=== PATIENT | male | born 1960 | race Caucasian/White ===

== ENCOUNTER 2022-10-18 16:52 | Emergency (ER) | payer OTHER ==
[~2022-10-18] VITALS: Ht 177.8 cm; Wt 72.1 kg
--- NOTE | 2022-10-18 17:25 | NUR ---
BIB [facility] 40 FROM HIS APARTMENT,C/O WEAKNESS AND DIZZINESS ALL AFTERNOON
--- NOTE | 2022-10-18 17:31 | NUR ---
LAB FOR BLOOB AND EMT FOR EKG AT BED SIDE
[2022-10-18 17:48] LABS: BASOPHILS % (AUTO) 0.5 % (0.0-2.0); EOSINOPHILS % (AUTO) 2.1 % (0.0-6.0); HEMATOCRIT 44 % (39-51); HEMOGLOBIN 14.1 g/dL (13.5-17.5); LYMPHOCYTES % (AUTO) 15.9 % (20.0-44.0); MEAN CORPUSCULAR HGB CONC 32 g/dl (31.0-36.0); MEAN CORPUSCULAR VOLUME 83 fL (80-96); MONOCYTES # (AUTO) 0.5 K/uL (0.1-1.30); MONOCYTES % (AUTO) 6.9 % (2.0-12.0); NEUTROPHILS # (AUTO) 4.9 K/uL (1.8-8.9); NEUTROPHILS % (AUTO) 74.6 % (43.0-81.0); PLATELET COUNT (AUTO) 140 K/uL (150-450); RED BLOOD CELL COUNT(AUTO) 5.26 MIL/uL (4.5-6.0); WHITE BLOOD COUNT (AUTO) 6.5 K/uL (4.3-11.0)
[2022-10-18 17:59] LABS: CALCIUM, SERUM 8.5 mg/dL (8.5-10.1); CARBON DIOXIDE 30 mmol/L (21-32); CHLORIDE 114 mmol/L (98-107); CREATININE 1.1 mg/dL (0.6-1.3); GLUCOSE 116 mg/dL (74-106); POTASSIUM 4.1 mmol/L (3.5-5.1); SODIUM SERUM 141 mmol/L (136-145); UREA NITROGEN, BLOOD 13 mg/dL (7-18)
[2022-10-18 18:06] LABS: ALANINE AMINOTRANSFERASE 44 U/L (12-78); ALBUMIN 3.9 g/dL (3.4-5.0); ALKALINE PHOSPHATASE 53 U/L (46-116); ASPARTATE AMINOTRANSFERASE 29 U/L (15-37); BILIRUBIN,DIRECT 0.1 mg/dL (0.0-0.2); BILIRUBIN,TOTAL 0.3 mg/dL (0.2-1.0); TOTAL PROTEIN, SERUM 7.3 g/dL (6.4-8.2)
[2022-10-18] MEDS ORDERED: MECL-159 PO (19:30)
[2022-10-18] MEDS ORDERED: ONDA4TAB11 PO (19:30)
--- NOTE | 2022-10-18 19:38 | NUR ---
RECEIVED REPORT FROM [facility]. PATIENT CAME FOR DIZZINESS. PT IS [id number]. WITH IV CANNULA G18 ON LEFT AC. WAITING FOR DISCHARGE.
--- NOTE | 2022-10-18 19:56 | NUR ---
IV CANNULA REMOVED
--- NOTE | 2022-10-18 19:56 | NUR ---
PATIENT FOR DISCHARGE BUT NEEDING HELP WITH REGARDS TO RIDE HOME. MARYLOU HUFF SPOKE TO PATIENT IN [facility].
--- NOTE | 2022-10-18 20:04 | NUR ---
CALLED RN FISHER L[facility]STER. WE WILL BE PROCESSING HIS TAXI RIDE.
--- NOTE | 2022-10-18 20:04 | NUR ---
Patient discharged to home in stable condition. Written and verbal after care instructions given. Patient verbalizes understanding of instruction.
--- NOTE | 2022-10-18 20:04 | NUR ---
[facility] PATIENT TO WAITING ROOM.
[2022-10-18 20:06] VITALS: BP 133/65
--- NOTE | 2022-10-18 22:46 | NUR ---
MULTIPLE ATTEMPTS TO CALL THE PT AT THE NUMBER PROVIDED, TO INFORM HIM ABOUT THE CXR RESULT. [facility] IS BUSY AND UNABLE TO GET A HOLD OF THE PT OR LEAVE A MEASSAGE
== END 2022-10-18 20:08 | disposition home or self-care (01) ==
LOC: ER 17:02
DX: R42 Dizziness and giddiness (principal); E03.9 Hypothyroidism, unspecified; F17.200 Nicotine dependence, unspecified, uncomplicated; Z60.2 Problems related to living alone; Z79.899 Other long term (current) drug therapy
CPT/HCPCS: 36415; 70450-TC; 71045-TC; 80048-TC; 80076-TC; 84484-TC; 85025-TC